=== PATIENT | female | born 1965 | race Caucasian/White ===

== ENCOUNTER 2019-01-09 15:51 | Inpatient (IN) ==
[2019-01-09] MEDS ORDERED: TEMAZEPAM 15 MG CAPSULE PO PRN (17:25)
[2019-01-09] MEDS ORDERED: ONDANSETRON 4 MG/2 ML VIAL IV PRN (17:26)
[2019-01-09] MEDS ORDERED: MORPHINE 4 MG/1 ML VIAL IV PRN ×2 (17:27)
[2019-01-09] MEDS ORDERED: VANCOMYCIN INJ 1,500 MG in SODIUM CHLORIDE 0.9% 500 ML IV ONE (18:00)
[2019-01-09] MEDS: LACTATED RINGERS 1,000 ML IV SCH (19:33)
[2019-01-09] MEDS: VANCOMYCIN INJ 1,500 MG in SODIUM CHLORIDE 0.9% 500 ML IV SCH (19:33)
[2019-01-10] MEDS ORDERED: FAMOTIDINE 20 MG TABLET PO ONE (06:58)
[2019-01-10 07:15] LABS: Basophils # 0.1 10*3/uL (0.0-0.2); Basophils % 0.6 % (0.0-0.8); Eosinophils # 0.3 10*3/uL (0.0-0.87); Eosinophils % 2.2 % (0.00-10.9); Hematocrit 39.9 VOL% (35.7-47.0); Hemoglobin 12.7 GM/DL (12.0-16.0); Immature Granulocytes % 0.6 %; Immature Granulocytes Absolute 0.08 #; Lymphocytes # 1.7 10*3/uL (1.4-4.0); Lymphocytes % 11.8 % (21.3-54.2); Mean Corpuscular HGB Conc 31.8 GM/DL (32-36); Mean Corpuscular Volume 86.2 FL (87-102); Mean Platelet Volume 9.6 FL (9.6-12.0); Monocytes % 4.5 % (1.7-12.7); Neutrophils % 80.3 % (38.7-73.9); Platelet Count 250 T/CUMM (130-400); Red Blood Count 4.63 MC/CUMM (3.8-5.5); Red Cell Distribution Width 13.7 % (9.3-17.3); White Blood Count 14.3 T/CUMM (4-12)
[2019-01-10 07:31] LABS: Calcium 8.8 MG/DL (8.5-10.1)
[2019-01-10] MEDS: LISINOPRIL/HCTZ 20-12.5 MG TABLET PO SCH (08:37)
[2019-01-10] MEDS: DULoxetine 30 MG CAPSULE PO SCH (08:37)
[2019-01-10] MEDS ORDERED: diphenhydrAMINE CAP 25 MG CAPSULE PO PRN (09:07)
[2019-01-10] MEDS ORDERED: PROMETHAZINE 25 MG/1 ML VIAL IM PRN (09:07)
[2019-01-10] MEDS ORDERED: MAGNESIUM HYDROXIDE SUSP 30 ML UDCUP PO PRN (09:07)
[2019-01-10] MEDS ORDERED: ONDANSETRON 4 MG/2 ML VIAL IV PRN (09:09)
[2019-01-10] MEDS ORDERED: PROMETHAZINE INJ 25 MG in SODIUM CHLORIDE 0.9% 50 ML IV PRN (09:09)
[2019-01-10] MEDS ORDERED: MEPERIDINE 25 MG/1 ML VIAL IV PRN (09:09)
[2019-01-10] MEDS ORDERED: SEVOFLURANE 1 UNIT/15 MINUTE INH ONE (09:17)
[2019-01-10] MEDS ORDERED: LIDOCAINE 100 MG/5 ML SYRINGE ONE (09:17)
[2019-01-10] MEDS ORDERED: PROPOFOL 200 MG/20 ML VIAL IV ONE (09:17)
[2019-01-10] MEDS ORDERED: fentaNYL 100 MCG/2 ML VIAL ONE (09:18)
[2019-01-10] MEDS ORDERED: MIDAZOLAM 2 MG/2 ML VIAL ONE (09:18)
[2019-01-10] MEDS ORDERED: DEXAMETHASONE 4 MG/1 ML VIAL ONE (09:18)
[2019-01-10] MEDS ORDERED: ONDANSETRON 4 MG/2 ML VIAL ONE ×2 (09:18→09:27)
[2019-01-10] MEDS ORDERED: PHENYLEPHRINE 1 MG/10 ML SYRINGE IV ONE (09:19)
[2019-01-10] MEDS ORDERED: ACETAMINOPHEN 1,000 MG/100 ML VIAL IV ONE (09:19)
[2019-01-10] MEDS ORDERED: MEPERIDINE 25 MG/1 ML VIAL ONE (09:27)
[2019-01-10] MEDS: LACTATED RINGERS 1,000 ML IV SCH ×2 (09:40→18:39)
[2019-01-11] MEDS: LACTATED RINGERS 1,000 ML IV SCH (07:39)
[2019-01-11] MEDS: VANCOMYCIN INJ 1,500 MG in SODIUM CHLORIDE 0.9% 500 ML IV SCH ×2 (08:30→08:35)
[2019-01-11] MEDS: DULoxetine 30 MG CAPSULE PO SCH (08:35)
[2019-01-11] MEDS: LISINOPRIL/HCTZ 20-12.5 MG TABLET PO SCH (08:35)
== END 2019-01-11 14:10 | disposition home or self-care (01) | DRG 508 ==
LOC: N.3E → SUPCPDRO 01-10 09:07
PROVIDERS: ADMIT Orthopaedic Surgery; ATTEND Orthopaedic Surgery

== ENCOUNTER 2020-12-04 15:39 | Inpatient (IN) ==
[2020-12-04] MEDS ORDERED: GLUCAGON 1 MG VIAL IM PRN (19:16)
[2020-12-04] MEDS ORDERED: ACETAMINOPHEN 325 MG TABLET PO PRN (19:16)
[2020-12-04] MEDS ORDERED: ONDANSETRON 4 MG/2 ML VIAL IV PRN (19:16)
[2020-12-04] MEDS ORDERED: DEXTROSE 50% 25 GM/50 ML VIAL IV PRN (19:16)
[2020-12-04] MEDS ORDERED: MORPHINE 2 MG/1 ML SYRINGE IV PRN (19:16)
[2020-12-04] MEDS ORDERED: NITROGLYCERIN 2% OINT 1 INCH/GM PACK TOP ONE (19:23)
[2020-12-04 20:07] LABS: Basophils # 0.1 10*3/uL (0.0-0.2); Basophils % 0.8 % (0.0-0.8); Eosinophils # 0.6 10*3/uL (0.0-0.87); Eosinophils % 5.3 % (0.00-10.9); Hemoglobin 12.7 GM/DL (12.0-16.0); Immature Granulocytes % 0.9 %; Lymphocytes # 3.4 10*3/uL (1.4-4.0); Lymphocytes % 29.7 % (21.3-54.2); Mean Corpuscular HGB Conc 31.8 GM/DL (32-36); Mean Corpuscular Volume 85.3 FL (87-102); Mean Platelet Volume 11.5 FL (9.6-12.0); Neutrophils % 57.3 % (38.7-73.9); Platelet Count 67 T/CUMM (130-400); Red Blood Count 4.69 MC/CUMM (3.8-5.5); Red Cell Distribution Width 13.7 % (9.3-17.3); White Blood Count 11.3 T/CUMM (4-12)
[2020-12-04 20:26] LABS: Albumin 4.5 G/DL (3.4-5.0); Bilirubin,Total 0.5 MG/DL (0.20-1.00); Calcium 9.2 MG/DL (8.5-10.1); Potassium 3.8 MMOL/L (3.5-5.1); Total Protein 8.2 G/DL (6.4-8.2)
[2020-12-04 20:45] LABS: Platelet Estimate Decreased
[2020-12-04] MEDS: ATORVASTATIN 40 MG TABLET PO SCH (20:50)
[2020-12-04] MEDS: METOPROLOL TARTRATE 25 MG TABLET PO SCH (20:50)
[2020-12-04] MEDS: ENOXAPARIN 100 MG/ML SYRINGE SUBCUT SCH (20:50)
[2020-12-04] MEDS: INSULIN REGULAR 100 UNIT/ML SUBCUT SCH (21:06)
[2020-12-05 03:05] LABS: Basophils # 0.1 10*3/uL (0.0-0.2); Basophils % 0.8 % (0.0-0.8); Eosinophils # 0.6 10*3/uL (0.0-0.87); Hematocrit 36.5 VOL% (35.7-47.0); Hemoglobin 11.3 GM/DL (12.0-16.0); Immature Granulocytes % 0.8 %; Immature Granulocytes Absolute 0.08 #; Lymphocytes # 3.5 10*3/uL (1.4-4.0); Lymphocytes % 35.5 % (21.3-54.2); Mean Corpuscular Volume 88.2 FL (87-102); Mean Platelet Volume 12.3 FL (9.6-12.0); Monocytes % 7.7 % (1.7-12.7); Neutrophils % 49.2 % (38.7-73.9); Red Blood Count 4.14 MC/CUMM (3.8-5.5); Red Cell Distribution Width 13.6 % (9.3-17.3); White Blood Count 9.7 T/CUMM (4-12)
[2020-12-05 03:07] LABS: Platelet Count 58 T/CUMM (130-400)
[2020-12-05 03:31] LABS: Calcium 8.8 MG/DL (8.5-10.1); Osmolality,Calculated 284.5 MOS/KG (273-304); Risk Ratio 6.57; Thyroid Stimulating Hormone 2.66 uIU/ml (0.358-3.74); VLDL Cholesterol 100.8 MG/DL
[2020-12-05 03:56] LABS: Hypochromasia Slight; Platelet Estimate Decreased; Tear Drop Cells Few
[2020-12-05] MEDS: INSULIN REGULAR 100 UNIT/ML SUBCUT SCH ×4 (08:28→21:00)
[2020-12-05] MEDS: ENOXAPARIN 100 MG/ML SYRINGE SUBCUT SCH (09:45)
[2020-12-05] MEDS: PANTOPRAZOLE 40 MG TABLET PO SCH (09:47)
[2020-12-05] MEDS: lisinopriL 10 MG TABLET PO SCH (09:47)
[2020-12-05] MEDS: METOPROLOL TARTRATE 25 MG TABLET PO SCH ×2 (09:47→20:51)
[2020-12-05] MEDS: ASPIRIN EC 81 MG TABLET PO SCH (09:47)
[2020-12-05 10:27] LABS: INR 1.1; PT Patient Result 11.9 SECS (10.5-12.0); Partial Thromboplastin Time 29.4 SECS (23.9-33.8)
[2020-12-05 11:16] LABS: Folate > 24.00 NG/ML (5.38-24.0); Vitamin B12 482 PG/ML (211-911)
[2020-12-05] MEDS: ATORVASTATIN 40 MG TABLET PO SCH (20:51)
[2020-12-05] MEDS ORDERED: APIXABAN 5 MG TABLET PO SCH (21:00)
[2020-12-06 06:18] LABS: Calcium 8.8 MG/DL (8.5-10.1); Osmolality,Calculated 278.8 MOS/KG (273-304); Potassium 4.1 MMOL/L (3.5-5.1)
[2020-12-06 06:28] LABS: Basophils # 0.1 10*3/uL (0.0-0.2); Basophils % 1.1 % (0.0-0.8); Eosinophils # 0.5 10*3/uL (0.0-0.87); Eosinophils % 6.9 % (0.00-10.9); Hematocrit 37.8 VOL% (35.7-47.0); Hemoglobin 11.8 GM/DL (12.0-16.0); Immature Granulocytes % 0.7 %; Immature Granulocytes Absolute 0.05 #; Lymphocytes # 2.3 10*3/uL (1.4-4.0); Lymphocytes % 32.4 % (21.3-54.2); Mean Corpuscular HGB Conc 31.2 GM/DL (32-36); Mean Corpuscular Volume 88.1 FL (87-102); Mean Platelet Volume 12.4 FL (9.6-12.0); Monocytes % 8.4 % (1.7-12.7); Neutrophils % 50.5 % (38.7-73.9); Platelet Count 67 T/CUMM (130-400); Red Blood Count 4.29 MC/CUMM (3.8-5.5); Red Cell Distribution Width 13.6 % (9.3-17.3); White Blood Count 7.1 T/CUMM (4-12)
[2020-12-06] MEDS: METOPROLOL TARTRATE 25 MG TABLET PO SCH ×2 (09:56→21:52)
[2020-12-06] MEDS: ASPIRIN EC 81 MG TABLET PO SCH (09:56)
[2020-12-06] MEDS: lisinopriL 10 MG TABLET PO SCH (09:56)
[2020-12-06] MEDS: PANTOPRAZOLE 40 MG TABLET PO SCH (09:56)
[2020-12-06] MEDS: INSULIN REGULAR 100 UNIT/ML SUBCUT SCH ×4 (09:57→22:59)
[2020-12-06 12:11] LABS: Hypochromasia 1+; Platelet Estimate Decreased
[2020-12-06] MEDS: ATORVASTATIN 40 MG TABLET PO SCH (21:52)
[2020-12-07] MEDS ORDERED: DIAZEPAM 5 MG TABLET PO ONE (06:00)
[2020-12-07] MEDS ORDERED: SODIUM CHLORIDE 0.45% 1,000 ML IV SCH (06:00)
[2020-12-07] MEDS ORDERED: diphenhydrAMINE CAP 50 MG CAPSULE PO ONE (06:00)
[2020-12-07 06:07] LABS: Basophils # 0.1 10*3/uL (0.0-0.2); Basophils % 0.8 % (0.0-0.8); Eosinophils # 0.5 10*3/uL (0.0-0.87); Eosinophils % 5.5 % (0.00-10.9); Hematocrit 35.9 VOL% (35.7-47.0); Hemoglobin 11.6 GM/DL (12.0-16.0); Immature Granulocytes % 0.9 %; Immature Granulocytes Absolute 0.08 #; Lymphocytes # 2.5 10*3/uL (1.4-4.0); Lymphocytes % 27.6 % (21.3-54.2); Mean Corpuscular HGB Conc 32.3 GM/DL (32-36); Mean Corpuscular Volume 85.5 FL (87-102); Mean Platelet Volume 11.8 FL (9.6-12.0); Monocytes % 6.4 % (1.7-12.7); Neutrophils % 58.8 % (38.7-73.9); Red Cell Distribution Width 13.5 % (9.3-17.3)
[2020-12-07 06:10] LABS: Platelet Count 53 T/CUMM (130-400)
[2020-12-07 06:22] LABS: Calcium 8.9 MG/DL (8.5-10.1); Osmolality,Calculated 285.4 MOS/KG (273-304); Potassium 4.3 MMOL/L (3.5-5.1)
[2020-12-07 06:24] LABS: Hypochromasia Slight; Microcytosis Slight; Platelet Estimate Decreased
[2020-12-07] MEDS ORDERED: LIDOCAINE 1% 20 ML VIAL ONE (06:57)
[2020-12-07] MEDS ORDERED: HEPARIN/NACL 0.9% 2 UNITS/ML 2,000 UNIT/1,000 ML BAG IV ONE (06:57)
[2020-12-07] MEDS ORDERED: NITROGLYCERIN DRIP 50 MG/250 ML BOTTLE IV ONE (07:00)
[2020-12-07] MEDS ORDERED: VERAPAMIL 5 MG/2 ML VIAL ONE (07:00)
[2020-12-07] MEDS: INSULIN REGULAR 100 UNIT/ML SUBCUT SCH ×3 (07:06→17:14)
[2020-12-07] MEDS ORDERED: MIDAZOLAM 2 MG/2 ML VIAL ONE ×2 (07:32→07:53)
[2020-12-07] MEDS ORDERED: fentaNYL 100 MCG/2 ML VIAL ONE (07:33)
[2020-12-07] MEDS ORDERED: HYDROmorphone 2 MG/1 ML VIAL ONE (07:53)
[2020-12-07] MEDS ORDERED: DULoxetine 30 MG CAPSULE PO SCH (09:00)
[2020-12-07] MEDS ORDERED: predniSONE 50 MG TABLET PO SCH (09:00)
[2020-12-07] MEDS: METOPROLOL TARTRATE 25 MG TABLET PO SCH (09:56)
[2020-12-07] MEDS: lisinopriL 10 MG TABLET PO SCH (09:57)
[2020-12-07] MEDS: PANTOPRAZOLE 40 MG TABLET PO SCH (09:57)
[2020-12-07] MEDS: ASPIRIN EC 81 MG TABLET PO SCH (14:25)
[2020-12-07 16:56] VITALS: BP 105/55
[2020-12-08 21:46] LABS: Ehrlichia Chaffeensis (HME)IgG <1:64 titer (<1:64)
== END 2020-12-07 18:18 | disposition home or self-care (01) | DRG 287 ==
LOC: N.TELES → SUATTDRO 18:12
PROVIDERS: ADMIT Internal Medicine; ATTEND Hospitalist